=== PATIENT | female | born 1950 | race Caucasian/White ===

== ENCOUNTER 2020-08-11 15:48 | Emergency (ER) | payer MEDICARE, OTHER ==
[~2020-08-11] VITALS: Ht 167.6 cm; Wt 91.0 kg
[~2020-08-11 15:48] MED LIST: DIAZ10TA4 PO; DULO60CA6 PO; GABA-587 PO; LISI20TA18 PO; MECL-75 PO; MELO7.5T5 PO; METF500T16 PO; METF850T8 PO; MONT10TA80 PO; ONDA4TAB12 PO; RANI-376 PO; TIZA4TAB2 PO; TRAM50TA PO
[2020-08-11] MEDS ORDERED: ONDANSETRON PF 4 MG/2 ML VIAL. ONE (16:06)
[2020-08-11] MEDS ORDERED: IV NORMAL SALINE 1,000ML 1,000 ML IV ONE ×3 (16:15→17:45)
[2020-08-11] MEDS ORDERED: ONDANSETRON PF 4 MG/2 ML VIAL. IVP ONE (16:30)
[2020-08-11] MEDS ORDERED: PANTOPRAZOLE IV 80 MG in IV NORMAL SALINE 100ML 100 ML IV ONE (16:30)
[2020-08-11] MEDS ORDERED: METOCLOPRAMIDE HCL 10 MG/2 ML VIAL. IVP ONE (16:45)
[2020-08-11] MEDS ORDERED: METOCLOPRAMIDE HCL 10 MG/2 ML VIAL. ONE (16:46)
[2020-08-11 16:52] LABS: GASTRIC OB PAT POSITIVE (NEG)
[2020-08-11 16:54] LABS: BASO # 0.1 x10^3/uL (0.0-0.2); BASO % 1 % (0-3); EOS # 0.1 x10^3/uL (0.0-0.7); EOS % 0 % (0-3); HEMOGLOBIN 12.5 g/dL (12.0-15.5); LYMPH # 3.7 x10^3/uL (1.0-4.8); LYMPH % 22 % (24-48); MEAN CORPUSCULAR HEMOGLOBIN 29 pg (25-35); MEAN CORPUSCULAR HGB CONC 31 g/dL (31-37); MEAN CORPUSCULAR VOLUME 93 fL (79-100); MONO # 0.5 x10^3/uL (0.0-1.1); MONO % 3 % (0-9); NEUT # 12.3 x10^3uL (1.8-7.7); NEUT % 74 % (31-73); PLATELET COUNT 321 x10^3/uL (140-400); RED BLOOD COUNT 4.29 x10^6/uL (3.50-5.40); WHITE BLOOD COUNT 16.7 x10^3/uL (4.0-11.0)
[2020-08-11] MEDS ORDERED: PROCHLORPERAZINE 10 MG/2 ML VIAL. IV ONE (17:00)
[2020-08-11 17:07] LABS: CALCIUM 9.8 mg/dL (8.5-10.1); CREATININE 1.3 mg/dL (0.6-1.0); GFR 40.9
[2020-08-11 17:13] LABS: ALBUMIN 3.3 g/dL (3.4-5.0); ALBUMIN/GLOBULIN RATIO 0.7 (1.0-1.7); TOTAL BILIRUBIN 0.7 mg/dL (0.2-1.0); TOTAL PROTEIN 7.8 g/dL (6.4-8.2)
[2020-08-11] MEDS ORDERED: IOHEXOL 300 MG/ML 75 ML VIAL. IV ONE (17:30)
--- NOTE | 2020-08-11 17:31 | RAD ---
Chest AP portable at 1717: Reason for examination: Right lower quadrant pain with bloody vomitus. Comparison is made to previous chest dated 03/03/2015. The heart size is normal. Mediastinum is unremarkable. Lung astudillo are clear. There is some elevation of the right hemidiaphragm which appears to be slightly more prominent than on previous exam. No acu te bony abnormalities are seen. Impression: Increased elevation of the right hemidiaphragm. No other acute abnormalities evident chest. Electronically signed by: Yudy Subramanian MD (08/11/2020 5:29 PM) [facility]
[2020-08-11 17:38] LABS: POTASSIUM 5.2 mmol/L (3.5-5.1)
[2020-08-11] MEDS ORDERED: IV NORMAL SALINE 50ML 50 ML ONE (17:45)
[2020-08-11] MEDS ORDERED: PIPERACILLIN/TAZOBACTAM 3.375 GM VIAL IV ONE (17:45)
[2020-08-11] MEDS ORDERED: PIPERACILLIN/TAZOBACTAM 3.375 GM in IV NORMAL SALINE 50ML 50 ML IV ONE (17:45)
[2020-08-11 18:00] LABS: FECAL OB PT POSITIVE (NEG)
[2020-08-11 18:04] LABS: % LYMPHS 24 % (24-48); % MONOS 4 % (0-10); % SEGS 72 % (35-66); PLT ESTIMATE ADEQUATE (ADEQUATE)
--- NOTE | 2020-08-11 18:12 | RAD ---
Exam: CT of abdomen and pelvis with contrast INDICATION: Right lower abdominal pain TECHNIQUE: Sequential axial images through the abdomen and pelvis obtained following the administrati on of 60 mL of Omni 300 IV contrast. Sagittal and coronal reformatted images were reconstructed from the axial data and reviewed. Comparisons: None FINDINGS: Heart size is normal. No pericardial effusion. Visualized lung bases are clear. No pleural effusion. Diffuse hepatic steatosis. Spleen, pancreas, gallbladder and adrenals are unremarkable. No perinephric inflammation or hydronephrosis. No renal or ureteral calculi are identified. Bladder is distended and appears thin-walled. Uterus is not enlarged. No abnormal adnexal mass. Large and small bowel are unremarkable. Appendix is not identified. No free intra-abdominal air or fl uid. No obstruction. Abdominal aorta has a normal course and caliber. Abdominal vasculature is patent. No enlarged abdominal lymph nodes are identified. No suspicious osseous lesions or acute fractures. IMPRESSION: 1. No acute process identified within the abdomen or pelvis. 2. Mild diffuse hepatic steatosis. Exposure: One or more of the following in the visualized dose reduction techniques were utilized for this examination: 1. Automated exposure control 2. Adjustment of the MA and/or KV according to patient size 3. Use of iterative of reconstructive technique Electronically signed by: Navdeep Gutiérrez MD (08/11/2020 6:09 PM) [facility]
--- NOTE | 2020-08-11 18:42 | PHYS DOC ---
Past History Past Medical History: Arthritis, Diabetes, DVT, GERD, Other Additional Past Medical Histor: cardona's esophagus, PE, hiatal hernia Past Surgical History: Other Alcohol Use: Rarely Drug Use: None Adult General Chief Complaint Chief Complaint: MULTIPLE COMPLAINTS HPI HPI Patient is a 69-year-old female presents to the emergency department complaining that approximately noon she was feeling feverish so she took her temperature and noted it was 102.0 oral. Patient states she took 2 each 325 mg [id number]-axcxbax Tylenol. Patient states that approximately 2 hours later she started feeling sick to her stomach and vomited approximately 4 times prior to her arrival to the emergency department today. Patient reports her vomitus as "yellow bile looking ". Patient states she had one bout of loose stool diarrhea prior to EMS arriving to her residence to transport her here to the emergency department. Patient states she has abdominal pain on the right lower side that does not radiate. Patient rates her pain a 4/10 on a 1-10 pain scale. Patient denies chest pain or chest palpitations. Patient denies shortness of breath, chest congestion or nasal congestion. Patient denies sore throat. Patient denies rashes of her skin. Patient denies visual disturbances or feelings of dizziness. Patient reports a history of Cardona's esophagus, type 2 diabetes, hypertension, a DVT of the left leg with a pleural effusion in 2018, chronic back and chronic right shoulder pain and goiter. Patient reports taking Eliquis, Jardiance, gabapentin, lisinopril, Cymbalta, Flexeril, tramadol, magnesium, Voltaren gel, Protonix. Review of Systems Review of Systems 14 body systems of review of systems have been reviewed. See HPI for pertinent positives and negative responses, otherwise all other systems are negative, nonpertinent or noncontributory. Current Medications Current Medications Current Medications Medications (Trade) Dose Ordered Sig/Lissa Start Time Stop Time Status Last Admin Dose Admin Iohexol (Omnipaque 300 Mg/ml) 75 ml 1X ONCE 08/11/20 17:30 08/11/20 17:31 DC 08/11/20 17:45 75 ML Metoclopramide HCl (Reglan Vial) 10 mg STK-MED ONCE 08/11/20 16:46 08/11/20 16:49 DC Ondansetron HCl (Zofran) 4 mg 1X ONCE 08/11/20 16:30 08/11/20 16:31 DC 08/11/20 16:38 4 MG Pantoprazole Sodium 80 mg/ Sodium Chloride 100 ml @ 10 mls/hr 1X ONCE 08/11/20 16:30 08/12/20 02:29 08/11/20 16:38 10 MLS/HR Piperacillin Sod/ Tazobactam Sod (Zosyn) 3.375 gm STK-MED ONCE 08/11/20 17:45 08/11/20 17:45 DC Piperacillin Sod/ Tazobactam Sod 3.375 gm/Sodium Chloride 50 ml @ 100 mls/hr 1X ONCE 08/11/20 17:45 08/11/20 18:14 DC 08/11/20 17:52 100 MLS/HR Prochlorperazine Edisylate (Compazine) 10 mg 1X ONCE 08/11/20 17:00 08/11/20 17:01 DC 08/11/20 16:56 10 MG Sodium Chloride 50 ml @ As Directed STK-MED ONCE 08/11/20 17:45 08/11/20 17:45 DC Allergies Allergies Allergies Coded Allergies Type Severity Reaction Last Updated Verified Sulfa (Sulfonamide Antibiotics) Allergy Intermediate 03/06/15 Yes atorvastatin Allergy Intermediate 03/06/15 Yes Physical Exam Physical Exam Constitutional: Well developed, well nourished, non-toxic appearance. 69-year-old patient in moderate physical distress, vomiting dark maroon-colored blood during physical exam. HENT: Normocephalic, atraumatic, bilateral external ears normal, oropharynx moist, no oral exudates, nose normal. Eyes: PERRLA, EOMI, conjunctiva normal, no discharge. Neck: Normal range of motion, no tenderness, supple, no stridor. No nuchal rigidity appreciated, no meningismus signs. Cardiovascular:Heart rate regular rhythm, no murmur, heart sounds S1-S2, tachycardic rhythm. Lungs & Thorax: Bilateral breath sounds clear to auscultation all lung astudillo. Abdomen: Bowel sounds hypoactive, soft, no masses, no pulsatile masses. Tenderness to right lower quadrant, positive McBurney's point tenderness, positive psoas sign, positive rebound tenderness, negative Hoover sign, no areas of ecchymosis appreciated. Skin: Warm, dry, no erythema, no rash. Back: No tenderness, no CVA tenderness. Extremities: No tenderness, no cyanosis, no clubbing, ROM intact, no edema. Neurologic: Alert and oriented X 3, normal motor function, normal sensory function, no focal deficits noted. Psychologic: Affect normal, judgement normal, mood normal. Current Patient Data Vital Signs Vital Signs Date Time Temp Pulse Resp B/P (MAP) Pulse Ox O2 Delivery O2 Flow Rate FiO2 08/11/20 17:57 112 14 140/76 (97) 97 Room Air 08/11/20 15:48 97.8 Lab Results Laboratory Tests Test 08/11/20 16:00 08/11/20 16:08 08/11/20 17:05 08/11/20 17:10 White Blood Count 16.7 x10^3/uL Red Blood Count 4.29 x10^6/uL Hemoglobin 12.5 g/dL Hematocrit 40.0 % Mean Corpuscular Volume 93 fL Mean Corpuscular Hemoglobin 29 pg Mean Corpuscular Hemoglobin Concent 31 g/dL Red Cell Distribution Width 14.0 % Platelet Count 321 x10^3/uL Neutrophils (%) (Auto) 74 % Lymphocytes (%) (Auto) 22 % Monocytes (%) (Auto) 3 % Eosinophils (%) (Auto) 0 % Basophils (%) (Auto) 1 % Neutrophils # (Auto) 12.3 x10^3uL Lymphocytes # (Auto) 3.7 x10^3/uL Monocytes # (Auto) 0.5 x10^3/uL Eosinophils # (Auto) 0.1 x10^3/uL Basophils # (Auto) 0.1 x10^3/uL Segmented Neutrophils % 72 % Lymphocytes % 24 % Monocytes % 4 % Platelet Estimate Adequate Sodium Level 138 mmol/L Potassium Level 5.2 mmol/L Chloride Level 102 mmol/L Carbon Dioxide Level 18 mmol/L Anion Gap 18 Blood Urea Nitrogen 28 mg/dL Creatinine 1.3 mg/dL Estimated GFR (Cockcroft-Gault) 40.9 BUN/Creatinine Ratio 22 Glucose Level 273 mg/dL Lactic Acid Level 7.9 mmol/L Calcium Level 9.8 mg/dL Total Bilirubin 0.7 mg/dL Aspartate Amino Transf (AST/SGOT) 56 U/L Alanine Aminotransferase (ALT/SGPT) 68 U/L Alkaline Phosphatase 97 U/L Total Protein 7.8 g/dL Albumin 3.3 g/dL Albumin/Globulin Ratio 0.7 Lipase 156 U/L Gastric Fluid Occult Blood Positive Stool Occult Blood Positive SARS-CoV-2 Antigen (Rapid) Negative Current Medications Medications (Trade) Dose Ordered Sig/Lissa Route PRN Reason Start Time Stop Time Status Last Admin Dose Admin Ondansetron HCl (Zofran) 4 mg STK-MED ONCE .ROUTE 08/11/20 16:06 08/11/20 16:06 DC Pantoprazole Sodium 80 mg/ Sodium Chloride 100 ml @ 10 mls/hr 1X ONCE IV 08/11/20 16:30 08/12/20 02:29 08/11/20 16:38 10 MLS/HR Ondansetron HCl (Zofran) 4 mg 1X ONCE IVP 08/11/20 16:30 08/11/20 16:31 DC 08/11/20 16:38 4 MG Sodium Chloride 1,000 ml @ 1,000 mls/hr 1X ONCE IV 08/11/20 16:15 08/11/20 17:14 DC 08/11/20 16:38 1,000 MLS/HR Metoclopramide HCl (Reglan Vial) 10 mg 1X ONCE IVP 08/11/20 16:45 08/11/20 16:49 DC 08/11/20 16:47 10 MG Prochlorperazine Edisylate (Compazine) 10 mg 1X ONCE IV 08/11/20 17:00 08/11/20 17:01 DC 08/11/20 16:56 10 MG Metoclopramide HCl (Reglan Vial) 10 mg STK-MED ONCE .ROUTE 08/11/20 16:46 08/11/20 16:49 DC Sodium Chloride 1,000 ml @ 1,000 mls/hr 1X ONCE IV 08/11/20 17:15 08/11/20 18:14 DC 08/11/20 17:13 1,000 MLS/HR Iohexol (Omnipaque 300 Mg/ml) 75 ml 1X ONCE IV 08/11/20 17:30 08/11/20 17:31 DC 08/11/20 17:45 75 ML Sodium Chloride 1,000 ml @ 1,000 mls/hr 1X ONCE IV 08/11/20 17:45 08/11/20 18:44 08/11/20 17:51 1,000 MLS/HR Piperacillin Sod/ Tazobactam Sod 3.375 gm/Sodium Chloride 50 ml @ 100 mls/hr 1X ONCE IV 08/11/20 17:45 08/11/20 18:14 DC 08/11/20 17:52 100 MLS/HR Sodium Chloride 50 ml @ As Directed STK-MED ONCE .ROUTE 08/11/20 17:45 08/11/20 17:45 DC Piperacillin Sod/ Tazobactam Sod (Zosyn) 3.375 gm STK-MED ONCE IV 08/11/20 17:45 08/11/20 17:45 DC Laboratory Tests Test 08/11/20 16:00 08/11/20 16:08 08/11/20 17:05 08/11/20 17:10 White Blood Count 16.7 x10^3/uL (4.0-11.0) H Red Blood Count 4.29 x10^6/uL (3.50-5.40) Hemoglobin 12.5 g/dL (12.0-15.5) Hematocrit 40.0 % (36.0-47.0) Mean Corpuscular Volume 93 fL (79-100) Mean Corpuscular Hemoglobin 29 pg (25-35) Mean Corpuscular Hemoglobin Concent 31 g/dL (31-37) Red Cell Distribution Width 14.0 % (11.5-14.5) Platelet Count 321 x10^3/uL (140-400) Neutrophils (%) (Auto) 74 % (31-73) H Lymphocytes (%) (Auto) 22 % (24-48) L Monocytes (%) (Auto) 3 % (0-9) Eosinophils (%) (Auto) 0 % (0-3) Basophils (%) (Auto) 1 % (0-3) Neutrophils # (Auto) 12.3 x10^3uL (1.8-7.7) H Lymphocytes # (Auto) 3.7 x10^3/uL (1.0-4.8) Monocytes # (Auto) 0.5 x10^3/uL (0.0-1.1) Eosinophils # (Auto) 0.1 x10^3/uL (0.0-0.7) Basophils # (Auto) 0.1 x10^3/uL (0.0-0.2) Segmented Neutrophils % 72 % (35-66) H Lymphocytes % 24 % (24-48) Monocytes % 4 % (0-10) Platelet Estimate Adequate (ADEQUATE) Sodium Level 138 mmol/L (136-145) Potassium Level 5.2 mmol/L (3.5-5.1) H Chloride Level 102 mmol/L (98-107) Carbon Dioxide Level 18 mmol/L (21-32) L Anion Gap 18 (6-14) H Blood Urea Nitrogen 28 mg/dL (7-20) H Creatinine 1.3 mg/dL (0.6-1.0) H Estimated GFR (Cockcroft-Gault) 40.9 BUN/Creatinine Ratio 22 (6-20) H Glucose Level 273 mg/dL (70-99) H Lactic Acid Level 7.9 mmol/L (0.4-2.0) *H Calcium Level 9.8 mg/dL (8.5-10.1) Total Bilirubin 0.7 mg/dL (0.2-1.0) Aspartate Amino Transferase (AST) 56 U/L (15-37) H Alanine Aminotransferase (ALT) 68 U/L (14-59) H Alkaline Phosphatase 97 U/L (46-116) Total Protein 7.8 g/dL (6.4-8.2) Albumin 3.3 g/dL (3.4-5.0) L Albumin/Globulin Ratio 0.7 (1.0-1.7) L Lipase 156 U/L (73-393) Gastric Fluid Occult Blood Positive (NEG) Stool Occult Blood Positive (NEG) SARS-CoV-2 Antigen (Rapid) Negative (NEGATIVE) EKG EKG [] Radiology/Procedures Radiology/Procedures PATIENT: RADHA PIÑA ACCOUNT: [id number] : 1950 LOCATION: ER AGE: 69 SEX: F EXAM STATUS: REG ER ORD. PHYSICIAN: COLUMBA MIRANDA APRN REASON: RIGHT LOW ABD PAIN, VOMITING BLOOD Omni 300 60cc PROCEDURE: CT ABD PELV W/ IV CONTRST ONLY Exam: CT of abdomen and pelvis with contrast INDICATION: Right lower abdominal pain TECHNIQUE: Sequential axial images through the abdomen and pelvis obtained following the administration of 60 mL of Omni 300 IV contrast. Sagittal and coronal reformatted images were reconstructed from the axial data and reviewed. Comparisons: None FINDINGS: Heart size is normal. No pericardial effusion. Visualized lung bases are clear. No pleural effusion. Diffuse hepatic steatosis. Spleen, pancreas, gallbladder and adrenals are unremarkable. No perinephric inflammation or hydronephrosis. No renal or ureteral calculi are identified. Bladder is distended and appears thin-walled. Uterus is not enlarged. No abnormal adnexal mass. Large and small bowel are unremarkable. Appendix is not identified. No free intra-abdominal air or fluid. No obstruction. Abdominal aorta has a normal course and caliber. Abdominal vasculature is patent. No enlarged abdominal lymph nodes are identified. No suspicious osseous lesions or acute fractures. IMPRESSION: 1. No acute process identified within the abdomen or pelvis. 2. Mild diffuse hepatic steatosis. Exposure: One or more of the following in the visualized dose reduction techniques were utilized for this examination: 1. Automated exposure control 2. Adjustment of the MA and/or KV according to patient size 3. Use of iterative of reconstructive technique Electronically signed by: Navdeep Lacy MD (08/11/2020 6:09 PM) [facility] DICTATED AND SIGNED BY: NAVDEEP LACY MD DATE: 08/11/20 180 CC: COLUMBA MIRANDA APRN; SOWMYA CAMPUZANO DO; JACLYN POOL ~MTH0 0 PATIENT: RADHA PIÑA ACCOUNT: [id number] : 1950 LOCATION: ER AGE: 69 SEX: F EXAM STATUS: REG ER ORD. PHYSICIAN: COLUMBA MIRANDA APRN REASON: RLQ PAIN WITH BLOODY VOMITUS PROCEDURE: PORTABLE CHEST 1V Chest AP portable at 1717: Reason for examination: Right lower quadrant pain with bloody vomitus. Comparison is made to previous chest dated 03/03/2015. The heart size is normal. Mediastinum is unremarkable. Lung astudillo are clear. There is some elevation of the right hemidiaphragm which appears to be slightly more prominent than on previous exam. No acute bony abnormalities are seen. Impression: Increased elevation of the right hemidiaphragm. No other acute abnormalities evident chest. Electronically signed by: Delaney Lopez MD (08/11/2020 5:29 PM) [facility] DICTATED AND SIGNED BY: DELANEY LOPEZ MD DATE: 08/11/20 [id number] CC: COLUMBA MIRANDA APRN; SOWMYA CAMPUZANO DO; WOODY AVALOS DO ~MTH0 0 Heart Score Risk Factors: Risk Factors: DM, Current or recent (<one month) smoker, HTN, HLP, family history of CAD, obesity. Risk Scores: Risk Factors: DM, Current or recent (<one month) smoker, HTN, HLP, family history of CAD, obesity. Course & Med Decision Making Course & Med Decision Making Pertinent Labs and Imaging studies reviewed. (See chart for details) 69-year-old female, vital signs reviewed, presents emergency department complaining of fever at home with sudden onset of nausea and bilious vomiting x4. Patient was vomiting dark maroon-colored blood during physical examination, physical exam concerning for appendicitis versus diverticulitis versus GI bleed versus surgical abdomen. In ER work-up was initiated. Patient's lactic acid level 7.9, initiated 30 mL/kg patient weight fluid resuscitation. Patient's Gastroccult positive, Hemoccult positive. Patient started on 3.375 g Zosyn IV. X-ray of patient's chest and CT of patient's abdomen negative for acute process per radiology interpretation. Discussed with patient need to transfer to [facility] for continuum and higher level of care, patient is amenable to this. Patient states she is a DNR, patient states specifically "I want you to understand that I am a DNR... DO NOT RESUSCITATE... if I flop over don't you dare " Discussed patient case with HIMS physician Dr. Verdugo who agreed to assume patient care and transfer to [facility] ICU unit with a diagnosis of GI bleed with the information he was given. Dr. Verdugo recommended a repeat H&H prior to patient's transfer. Discussed starting patient on 500 mg Flagyl IV, Dr. Verdugo did not recommend this. Dr. Verdugo has assumed patient care in transfer at this time. EMTALA forms were completed and signed by me and attending physician Dr. Kelly. EMS arrived to transfer patient to [facility] ICU, patient is stable for transfer at this time. Dragon Disclaimer Dragon Disclaimer This electronic medical record was generated, in whole or in part, using a voice recognition dictation system. Departure Departure: Impression: Primary Impression: GI bleed Additional Impressions: Bilious vomiting Bloody vomitus Occult blood in stools Elevated lactic acid level Disposition: 02 DC/TRF OTHER SHORT TERM HOS Admitting Physician: Manuel Verdugo (Transferred to [facility] ICU unit to Dr. Verdugo) Condition: GUARDED Referrals: JACLYN POOL (PCP) Problem Qualifiers Primary Impression: GI bleed GI bleed type/associated pathology: unspecified gastrointestinal hemorrhage type Qualified Codes: K92.2 - Gastrointestinal hemorrhage, unspecified Additional Impressions: Bilious vomiting Nausea presence: with nausea Qualified Codes: R11.14 - Bilious vomiting Bloody vomitus Nausea presence: with nausea Qualified Codes: K92.0 - Hematemesis COLUMBA MIRANDA APRN Aug 11, 2020 18:42
[2020-08-11 19:07] LABS: BASO % 0 % (0-3); EOS % 0 % (0-3); HEMATOCRIT 33.1 % (36.0-47.0); HEMOGLOBIN 10.5 g/dL (12.0-15.5); LYMPH # 1.9 x10^3/uL (1.0-4.8); LYMPH % 13 % (24-48); MEAN CORPUSCULAR HEMOGLOBIN 29 pg (25-35); MEAN CORPUSCULAR HGB CONC 32 g/dL (31-37); MEAN CORPUSCULAR VOLUME 93 fL (79-100); MONO # 0.7 x10^3/uL (0.0-1.1); MONO % 5 % (0-9); NEUT % 82 % (31-73); PLATELET COUNT 243 x10^3/uL (140-400); RED BLOOD COUNT 3.57 x10^6/uL (3.50-5.40); RED CELL DISTRIBUTION WIDTH 14.1 % (11.5-14.5); WHITE BLOOD COUNT 14.6 x10^3/uL (4.0-11.0)
[2020-08-11 19:08] VITALS: BP 134/74
== END 2020-08-11 20:30 | disposition short-term general hospital (02) ==
LOC: ER 15:48
DX: K92.2 Gastrointestinal hemorrhage, unspecified (principal); K92.0 Hematemesis; R19.5 Other fecal abnormalities; R74.02 Elevation of levels of lactic acid dehydrogenase [LDH]; E11.9 Type 2 diabetes mellitus without complications; I10 Essential (primary) hypertension; K21.9 Gastro-esophageal reflux disease without esophagitis; M19.90 Unspecified osteoarthritis, unspecified site; G89.29 Other chronic pain; Z20.822 Contact with and (suspected) exposure to COVID-19; Z86.718 Personal history of other venous thrombosis and embolism; Z88.2 Allergy status to sulfonamides; Z88.8 Allergy status to other drugs, medicaments and biological substances
CPT/HCPCS: 36415; 51702; 71045; 74177; 80053; 82271; 82274; 82803; 83605; 83690; 85007; 85025; 85610; 85730; 86850; 86900; 86901; 87040; 87426; 96365; 96366; 96368; 96374; 96375; 99285; C9113; C9803; J0780; J2405; J2543; J2765; J3010; J7030; Q9967; U0003

== ENCOUNTER → 2020-12-23 | Outpatient (CLI) | payer MEDICARE, OTHER ==
[2020-09-12 12:17] VITALS: BP 95/54
--- NOTE | 2020-12-23 09:56 | RAD ---
EXAMINATION: US ABDOMEN COMPLETE INDICATION: 70 years, Female, elevated liver function test annular fibrosis. COMPARISON: CT dated 08/11/2020 TECHNIQUE: Grayscale, color Doppler and limited spectral Doppler images of the abdomen were obtained. FINDINGS: LIVER: SIZE (LENGTH): 14.5 cm. ECHOGENICITY: Increased PARENCHYMA: Mild heterogeneous echotexture. No discrete focal lesion. INTRAHEPATIC BILE DUCTS: Nondilated. PORTAL VEIN: Patent with normal hepatopedal flow. GALLBLADDER: GALLBLADDER WALL THICKNESS: 1.2 mm MORPHOLOGY: Normal morphology. No wall hyperemia or pericholecystic free fluid. LUMEN: There is a 1.4 cm cholelithiasis. COMMON BILE DUCT DIAMETER: 2.7 mm RIGHT KIDNEY: MEASURES: 9.4 cm in length. MORPHOLOGY/PARENCHYMA: Normal corticomedullary differentiation with no shadowing calculus or discrete masses. COLLECTING SYSTEM: No hydronephrosis. LEFT KIDNEY: MEASURES: 9.7 cm in length MORPHOLOGY/PARENCHYMA: Normal corticomedullary differentiation with no shadowing calculus or discrete masses. COLLECTING SYSTEM: No hydronephrosis. SPLEEN: SIZE (LENGTH): 9.2 cm PARENCHYMA: Unremarkable. PANCREAS: VISUALIZED PORTIONS: Head and body APPEARANCE: Within normal limits. OTHER: RETROPERITONEUM, INFERIOR VENA CAVA: Normal caliber. AORTA: Normal caliber measures up to 2.7 cm FLUID:No free fluid. IMPRESSION: 1. Moderate diffuse hepatic steatosis. No sonographic evidence of advanced chronic liver disease. 2. Cholelithiasis without acute cholecystitis. Electronically signed by: Tamiko Bynum MD (12/23/2020 9:53 AM) [facility]
== END ==
LOC: US 08:24
DX: K76.0 Fatty (change of) liver, not elsewhere classified (principal); K74.00 Hepatic fibrosis, unspecified; R74.8 Abnormal levels of other serum enzymes
CPT/HCPCS: 76700

== ENCOUNTER → 2021-03-05 | Outpatient (CLI) | payer MEDICARE, OTHER ==
[2020-09-12 12:17] VITALS: BP 95/54
--- NOTE | 2021-03-05 17:29 | RAD ---
INDICATION: 70 years of age asymptomatic female patient presents for screening mammography. TECHNIQUE: Full field craniocaudal and mediolateral oblique images of both breasts were obtained usi ng digital technique with tomosynthesis and also analyzed with computer-aided detection software. COMPARISON: No prior imaging is available for comparison BREAST COMPOSITION: Category B: There are scattered fibroglandular densities. FINDINGS: Benign calcifications are present. The parenchymal pattern appears stable. No suspicious masses, microcalcifications or architectural distortion is present to suggest malignanc y in either breast. The visualized axillae are unremarkable. IMPRESSION: No mammographic evidence of malignancy. RECOMMENDATION: Annual screening mammography is recommended, unless clinically indicated sooner based on symptoms or change in physical exam. BIRADS 2: BENIGN This study was interpreted with the benefit of Computerized Aided Detection (CAD). Patient information is entered into the reminder system with a target due date for the next screening mammogram. Mammography is the most sensitive method for finding small breast cancers, but it does not detect the m all and is not a substitute for careful clinical examination. A negative mammogram does not negate a clinically suspicious finding and should not result in delay in biopsying a clinically suspicious a bnormality. "Our facility is accredited by the [employer] Mammography Program." Electronically signed by: Hipolito Zaragoza MD (03/05/2021 5:27 PM) [id number]
== END ==
LOC: MAMMO 11:15
PROVIDERS: ATTEND Family Medicine
DX: Z12.31 Encounter for screening mammogram for malignant neoplasm of breast (principal); R92.1 Mammographic calcification found on diagnostic imaging of breast
CPT/HCPCS: 77063; 77067

== ENCOUNTER → 2021-06-03 | Outpatient (CLI) | payer MEDICARE, OTHER ==
[2020-09-12 12:17] VITALS: BP 95/54
[~2021-06-03] MED LIST changes: -DULO60CA6 PO; +DULO60CA7 PO; +TIZA-75 PO; -TIZA4TAB2 PO
--- NOTE | 2021-06-03 13:00 | RAD ---
EXAM: ULTRASOUND ABDOMEN COMPLETE CLINICAL HISTORY: Reason: ELEVATED LFTS, FATTY LIVER DISEASE / Spl. Instructions: / History: COMPARISON: None available. TECHNIQUE: Ultrasound of the upper abdomen was performed. FINDINGS: The pancreas is mostly obscured by intestinal gas.. The liver measures 16.4 centimeters in length in the right mid clavicular line. Increased hepatic ec hogenicity relative to the right kidney consistent with mild fatty liver. There are no focal liver l esions. Flow seen within the portal veins. The gallbladder is normal in appearance without evidence for cholelithiasis. There is no wall thicke nargis or pericholecystic fluid. There is no pain with direct transducer pressure over the gallbladder . The common bile duct measures 0.2 cm. The spleen measures 11 cm. The right kidney measures 9.7 cm in bipolar length. Normal renal cortical echotexture and thickness. No focal renal lesion, hydronephrosis or shadowing renal calculus. The left kidney measures 10.4 cm in bipolar length. Normal renal cortical echotexture and thickness. No focal renal lesion, hydronephrosis or shadowing renal calculus. Visualized portions of the abdominal aorta and inferior vena cava are unremarkable. There is no free fluid in the upper abdomen. IMPRESSION: Mild increased echogenicity of the liver, likely mild fatty liver. Otherwise normal sonographic surve y of the right upper quadrant. Electronically signed by: Hipolito Zaragoza MD (06/03/2021 12:58 PM) [email or web address]
== END ==
LOC: US 08:37
PROVIDERS: ATTEND Physician Assistant
DX: R74.8 Abnormal levels of other serum enzymes (principal); K76.0 Fatty (change of) liver, not elsewhere classified; K74.00 Hepatic fibrosis, unspecified
CPT/HCPCS: 76700

== ENCOUNTER 2021-06-28 11:12 | Emergency (ER) | payer MEDICARE, OTHER ==
[~2021-06-28] VITALS: Ht 167.6 cm; Wt 94.0 kg
[2021-06-28 11:20] VITALS: BP 131/82
[2021-06-28] MEDS ORDERED: BACITRACIN ZINC TOPICAL OINT PACKET. TP ONE (11:45)
--- NOTE | 2021-06-28 12:00 | PHYS DOC ---
Past History Past Medical History: Arthritis, Diabetes, DVT, GERD, Other Additional Past Medical Histor: cardona's esophagus, PE, hiatal hernia Past Surgical History: Hip Replacement, Other Additional Past Surgical Histo: ORIF r shoulder, r ankle Alcohol Use: Rarely Drug Use: None Adult General Chief Complaint Chief Complaint: LACERATION/AVULSION HPI HPI Patient is a 70-year-old female presents emergency department with chief complaint of scalp laceration after a stumble and fall over a stepstool, patient reports she struck her head on her nightstand yesterday at 5:00 in the morning, did not lose consciousness, noticed she had a scalp laceration but did not seek medical assistance, she cleansed it with soap and water, reports her tetanus immunization is greater than 5 years ago, reports she takes tramadol daily for chronic aches and pains and is currently reporting 8 0 out of 10 pain of the scalp laceration site, reports she is on a blood thinner Eliquis. Denies head or neck pain, reports she called her doctor and sent a picture of her scalp laceration to the office, she was advised by the office nurse to come to the emergency department for evaluation. Patient denies dizziness, syncopal or near syncopal episodes, denies visual disturbances. Patient denies other physical complaints or physical concerns. Review of Systems Review of Systems 14 body systems of review of systems have been reviewed. See HPI for pertinent positives and negative responses, otherwise all other systems are negative, no npertinent or noncontributory. Constitutional: Negative except as outlined in HPI above. Skin: Negative except as outlined in HPI above. Eyes: Negative except as outlined in HPI above. HENT: Negative except as outlined in HPI above. Respiratory: Negative except as outlined in HPI above. Cardiovascular: Negative except as outlined in HPI above. GI: Negative except as outlined in HPI above. : Negative except as outlined in HPI above. Musculoskeletal: Negative except as outlined in HPI above. Integument: Negative except as outlined in HPI above. Neurologic: Negative except as outlined in HPI above. Endocrine: Negative except as outlined in HPI above. Lymphatic: Negative except as outlined in HPI above. Psychiatric: Negative except as outlined in HPI above. Current Medications Current Medications Current Medications Medications (Trade) Dose Ordered Sig/Lissa Start Time Stop Time Status Last Admin Dose Admin Bacitracin (Bacitracin Topical Pkt) 1 pkt 1X ONCE 06/28/21 11:45 06/28/21 11:46 UNV Diphtheria/ Pertussis/Tetanus Vacc (ADACEL TDap SYRINGE) 0.5 ml ONCE ONCE 06/28/21 11:45 06/28/21 11:46 UNV Allergies Allergies Allergies Coded Allergies Type Severity Reaction Last Updated Verified Sulfa (Sulfonamide Antibiotics) Allergy Intermediate 06/28/21 Yes atorvastatin Allergy Intermediate 06/28/21 Yes meloxicam Allergy Unknown 06/28/21 Yes metformin Allergy Unknown 06/28/21 Yes Uncoded Allergies Type Severity Reaction Last Updated Verified BEEF Allergy Unknown 06/28/21 CITRUS Allergy Unknown 06/28/21 Physical Exam Physical Exam Constitutional: Well developed, well nourished, no acute distress, non-toxic appearance. 70-year-old female in no apparent distress. HENT: Normocephalic, scalp laceration to left parietal, 1.2 cm, not bleeding, mild contusion, no skull depression appreciated, no palpable crepitus, no other pain elicited or abnormalities appreciated of the scalp. No battles sign, no raccoon eyes, bilateral TMs intact, no drainage from external auditory canals. Eyes: Conjunctiva normal, no discharge. Satisfactory 6 cardinal eye movements. Neck: Normal range of motion, no stridor. No midline spinal tenderness. Cardiovascular: No cyanosis appreciated, distal cap refill less than 2 seconds. Lungs & Thorax: Patient is in no respiratory distress, no audible adventitious l alton sounds appreciated. Abdomen: Nontender, no abnormalities noted. Skin: Warm, dry, no erythema, no rash. Back: No tenderness, no deformities. Extremities: No tenderness, no cyanosis, no clubbing, ROM intact, no edema. Neurologic: Alert and oriented X 3, normal motor function, normal sensory function, no focal deficits noted. Psychologic: Affect normal, judgement normal, mood normal. Current Patient Data Vital Signs Vital Signs Date Time Temp Pulse Resp B/P (MAP) Pulse Ox O2 Delivery O2 Flow Rate FiO2 06/28/21 11:20 98.9 100 18 131/82 (98) 98 EKG EKG [] Radiology/Procedures Radiology/Procedures REASON: Fall, head contusion with laceration, on Eliquis PROCEDURE: CT HEAD AND CERVICAL SPINE WO EXAM: Head and cervical spine CT without contrast. HISTORY: Laceration. Blood thinners. TECHNIQUE: Computed tomographic images of the head and cervical spine were obtained without contrast. *One or more of the following individualized dose reduction techniques were utilized for this examination: 1. Automated exposure control. 2. Adjustment of the mA and/or kV according to patient size. 3. Use of iterative reconstruction technique. COMPARISON: 03/03/2015. FINDINGS: Head: There is no hemorrhage. There is no mass effect or midline shift. There is no hydrocephalus. The bui-white matter differentiation pattern is intact. There is no suspicious calvarial lesion. The orbits, paranasal sinuses mastoid air cells are unremarkable. Cervical spine: There is degenerative endplate remodeling and disc space narrow ing at C3-C7. There are multiple endplate Schmorl's nodes. There are osseous hemangiomas. There is no suspicious osseous lesion. There is no acute or subacute fracture. There is bone demineralization. There is a suspected 2.0 cm right thyroid nodule. The combination of degenerative changes results in mild right foraminal stenosis at C2-C3, moderate to severe bilateral foraminal and mild and central canal stenosis at C3-C4, moderate to severe lateral foraminal and moderate central canal stenosis at C4-C5, mild bilateral foraminal and moderate central canal stenosis at C5-C6, and mild right and moderate to severe left foraminal and mild central canal stenosis at C6-C7. IMPRESSION: 1. No acute intracranial finding or evidence of acute cervical spine trauma. 2. Degenerative change involving the cervical spine, resulting in stenosis at the aforementioned levels. 3. Right thyroid nodule. This can be further assessed with a thyroid sonogram, if not previously performed. Electronically signed by: Cece Cervantes MD (06/28/2021 12:08 PM) [id number] Heart Score C/O Chest Pain: No Risk Factors: Risk Factors: DM, Current or recent (<one month) smoker, HTN, HLP, family history of CAD, obesity. Risk Scores: Risk Factors: DM, Current or recent (<one month) smoker, HTN, HLP, family history of CAD, obesity. Course & Med Decision Making Course & Med Decision Making Pertinent Labs and Imaging studies reviewed. (See chart for details) 70-year-old female, vital signs reviewed, presents emerged from concerning laceration to scalp from fall yesterday morning at 5 AM. Physical examination consistent with patient's explanation of events, there is a scalp laceration however is over 24 hours old, will cleanse and apply antibiotic ointment to scalp laceration, this is a nonsuturable wound, patient is on Eliquis, will order CT head and C-spine related to fall with injury to scalp. Will bring patient's tetanus immunization up-to-date with Adacel/Tdap medication. Patient denies need for pain medication currently rating pain at a [address] head and C-spine unremarkable for acute process, does show degenerative changes of C-spine and nodule of right thyroid gland, discussed findings with patient, patient reports she is aware of thyroid nodule and has been worked up for this by her primary care physician, also reports she is aware of her degenerative changes of her C-spine, discussed with patient wound care of none suturable wounds, signs and symptoms of infectious process, follow-up primary care for reevaluation of wound this week, return to ER precautions or concerns, patient gave verbal understanding of and is amenable to ED discharge planning. Discussed with the patient all findings and diagnostic testing as well as the need to follow-up with their primary care provider for further evaluation and treatment or return to the ED if any new or worsening symptoms. Strict return precautions were also discussed at length, the patient voiced understanding and agreement with the discharge planning. The patient was nontoxic in appearance, in no apparent distress, and hemodynamically stable at the time of disposition. Dragon Disclaimer Dragon Disclaimer This electronic medical record was generated, in whole or in part, using a voice recognition dictation system. Departure Departure: Impression: Primary Impression: Fall Additional Impression: Scalp laceration Disposition: HOME / SELF CARE / HOMELESS Condition: GOOD Referrals: JACLYN CHARLES (PCP) Patient Instructions: Fall Prevention and Home Safety, Laceration, Old, Not Sutured Additional Instructions: You were seen today in the emergency department after a fall in which you suffered a laceration to your scalp yesterday morning. As we discussed this laceration is too old to be sutured however it does require daily cleansing and application of antibiotic ointment for wound care. As we discussed please watch for signs and symptoms of infection. A CT scan of your head and neck today did not reveal any concerning findings of broken bones or stroke or brain bleeds. Please follow-up with Dr. Charles for ongoing wound care management. Return to the emergency department for worsening symptoms or other concerns. Thank you for visiting our Emergency Department. It was a pleasure taking care of you today in the emergency department and we appreciate you trusting us with your care. If any additional problems come up don't hesitate to return to visit us. Please follow up with your primary care provider so they can plan additional care if needed and know about the problem that you had. If symptoms worsen come back to the Emergency Department. Any concerning symptoms that start such as chest pain, shortness of air, weakness or numbness on one side of the body, running high fevers or any other concerning symptoms return to the ER. Problem Qualifiers Primary Impression: Fall Encounter type: initial encounter Qualified Codes: W19.XXXA - Unspecified fall, initial encounter Additional Impression: Scalp laceration Encounter type: initial encounter Qualified Codes: S01.01XA - Laceration without foreign body of scalp, initial encounter COLUMBA MIRANDA APRN Jun 28, 2021 12:00
--- NOTE | 2021-06-28 12:11 | RAD ---
EXAM: Head and cervical spine CT without contrast. HISTORY: Laceration. Blood thinners. TECHNIQUE: Computed tomographic images of the head and cervical spine were obtained without contrast. *One or more of the following individualized dose reduction techniques were utilized for this examina tion: 1. Automated exposure control. 2. Adjustment of the mA and/or kV according to patient size. 3. Use of iterative reconstruction technique. COMPARISON: 03/03/2015. FINDINGS: Head: There is no hemorrhage. There is no mass effect or midline shift. There is no hydrocephalus. Th e bui-white matter differentiation pattern is intact. There is no suspicious calvarial lesion. The o rbits, paranasal sinuses mastoid air cells are unremarkable. Cervical spine: There is degenerative endplate remodeling and disc space narrowing at C3-C7. There ar e multiple endplate Schmorl's nodes. There are osseous hemangiomas. There is no suspicious osseous le trevor. There is no acute or subacute fracture. There is bone demineralization. There is a suspected 2. 0 cm right thyroid nodule. The combination of degenerative changes results in mild right foraminal stenosis at C2-C3, moderate t o severe bilateral foraminal and mild and central canal stenosis at C3-C4, moderate to severe lateral foraminal and moderate central canal stenosis at C4-C5, mild bilateral foraminal and moderate centra l canal stenosis at C5-C6, and mild right and moderate to severe left foraminal and mild central nuha l stenosis at C6-C7. IMPRESSION: 1. No acute intracranial finding or evidence of acute cervical spine trauma. 2. Degenerative change involving the cervical spine, resulting in stenosis at the aforementioned leve ls. 3. Right thyroid nodule. This can be further assessed with a thyroid sonogram, if not previously perf ormed. Electronically signed by: Cece Cervantes MD (06/28/2021 12:08 PM) [email or web address]
[2021-06-28] MEDS ORDERED: DIPH,PERTUSS(ACELL),TET VAC/PF 0.5 ML SYRINGE. VAX IM ONE (12:30)
== END 2021-06-28 13:25 | disposition home or self-care (01) ==
LOC: ER 11:12
DX: S01.01XA Laceration without foreign body of scalp, initial encounter (principal); M19.90 Unspecified osteoarthritis, unspecified site; E11.9 Type 2 diabetes mellitus without complications; K21.9 Gastro-esophageal reflux disease without esophagitis; Z86.718 Personal history of other venous thrombosis and embolism; Z88.2 Allergy status to sulfonamides; Z88.8 Allergy status to other drugs, medicaments and biological substances; W01.198A Fall on same level from slipping, tripping and stumbling with subsequent striking against other object, initial encounter; Y93.89 Activity, other specified; Y92.89 Other specified places as the place of occurrence of the external cause; Y99.8 Other external cause status
CPT/HCPCS: 70450; 72125; 90471; 90715; 99284